=== PATIENT | male | born 1940 | race Caucasian/White ===

== ENCOUNTER → 2017-01-07 | Outpatient (CLI) | payer MEDICARE ==
[~2017-01-07] MED LIST: AMLODIPINE BESYL5 MG PO; BUPROPION HCL150 M2 PO; CIPRO PO; DESYREL50 MG PO; HALDOL PO; HALOPERIDOL2 MG PO; LITHIUM PO; LITHOBID SR300 MG PO; MED FOR DEPRESSION
[2017-01-07 11:34] LABS: ALBUMIN SERUM 3.9 g/dL (3.5-5.0); BILIRUBIN,TOTAL 0.7 mg/dL (0.2-2.0); BUN/CREATININE RATIO 11.53; CALCIUM SERUM 9.5 mg/dL (8.4-10.2); CREATININE SERUM 1.3 mg/dL (0.6-1.4); GLOM FILT RATE Estimated 52.6 mL/min (>60); POTASSIUM 3.9 mmol/L (3.5-5.1); PROTEIN TOTAL SERUM 6.6 g/dL (6.0-8.3)
[2017-01-07 11:42] LABS: THYROID STIMULATING HORMONE 1.51 uIU/ml (0.34-5.60)
[2017-01-07 11:49] LABS: FREE THYROXIN (T4) 0.91 ng/dL (0.58-1.64)
== END | disposition home or self-care (01) ==
LOC: CLAB 10:15
PROVIDERS: Psychiatry & Neurology Psychiatry
DX: F31.62 Bipolar disorder, current episode mixed, moderate (principal)
CPT/HCPCS: 36415; 80053; 80178; 84439; 84443